=== PATIENT | male | born 1935 | race Caucasian/White ===

== ENCOUNTER 2018-07-09 04:11 | Inpatient (IN) | payer MEDICARE, OTHER ==
[~2018-07-09] VITALS: Ht 185.4 cm; Wt 102.3 kg
[~2018-07-09 04:11] MED LIST: ALBU90OI6 PO; ALLERTEC PO; ASPI81CH PO; ATOR10 PO; AZIT500 PO; CHOL10002 PO; DELTASONE20 MG PO; DOXE10 PO; ERGO400 PO; GABA100 PO; HYDCHL12.5 PO; IBUP800 PO; MECL25 PO; Omeprazole20 M1 PO; PRIM50 PO; PROC25S PR; PROP10 PO; Prilosec20 MG PO; SUCR1 PO; TIOT18 PO; TRAZ50 PO; VITAMIN B-12 PO; VITAMIN E PO; Zanaflex4 MG PO; [UNRECOGNIZED DRUG - REMARK]
[2018-07-09 04:59] LABS: BASOPHILS ABSOLUTE AUTO 0.05 K/mm3 (0.00-0.23); BASOPHILS PERCENT AUTO 1 % (0-2); EOSINOPHILS ABSOLUTE AUTO 0.31 K/mm3 (0.00-0.68); EOSINOPHILS PERCENT AUTO 5 % (0-6); Hematocrit 35.5 % (37.0-53.0); Hemoglobin 12.8 g/dL (13.5-17.5); IMMATURE GRAN ABSOLUTE AUTO 0.02 K/mm3 (0.00-0.10); IMMATURE GRAN PERCENT AUTO 0 % (0-1); LYMPHOCYTES ABSOLUTE AUTO 1.02 K/mm3 (0.84-5.20); LYMPHOCYTES PERCENT AUTO 17 % (21-46); MONOCYTES ABSOLUTE AUTO 0.37 K/mm3 (0.16-1.47); MONOCYTES PERCENT AUTO 6 % (4-13); Mean Corpuscular HGB 34.5 pg (26.0-34.0); Mean Corpuscular HGB Conc 36.1 g/dL (31.5-36.5); Mean Corpuscular Volume 96 fL (80-100); Mean Platelet Volume 9.6 fL (9.1-12.4); NEUTROPHILS ABSOLUTE AUTO 4.09 K/mm3 (1.96-9.15); NEUTROPHILS PERCENT AUTO 70 % (41-73); Platelet Count 197 K/mm3 (150-400); RDW Coefficient Variation 13.2 % (11.7-14.2); RDW Standard Deviation 46.5 fL (35.1-46.3); Red Blood Cell Count 3.71 M/mm3 (4.30-5.90); White Blood Cell Count 5.86 K/mm3 (4.00-11.30)
[2018-07-09 05:21] LABS: Alanine Aminotransfer (ALT/SGP 59 U/L (12-78); Albumin, Blood 3.7 g/dL (3.4-5.0); Albumin/Globulin Ratio 1.3 (0.8-1.8); Alk Phos 64 U/L (50-136); Anion Gap 6 mmol/L (6-16); Aspartate Aminotrans (AST/SGOT 67 U/L (12-37); Bilirubin, Total 0.6 mg/dL (0.1-1.0); Blood Urea Nitrogen 16 mg/dL (8-24); Bun/Creatinine Ratio 17.6 (12.0-20.0); CO2, Blood 28 mmol/L (21-32); Calcium, Blood 8.5 mg/dL (8.5-10.1); Chloride, Blood 108 mmol/L (98-108); Creatinine, Blood 0.91 mg/dL (0.60-1.20); Globulin, Blood 2.9 g/dL (2.2-4.0); Glomerular Filtration Rate >60 (60-); Glucose, Blood 82 mg/dL (70-99); Potassium, Blood 3.5 mmol/L (3.5-5.5); Sodium, Blood 142 mmol/L (136-145); Total Protein, Blood 6.6 g/dL (6.4-8.2); Troponin I 0.068 ng/mL (0.000-0.040)
[2018-07-09] MEDS ORDERED: IBUP800 PO (07:21)
[2018-07-09] MEDS ORDERED: PRIM50 PO (07:23)
[2018-07-09] MEDS ORDERED: CYAN500 PO (07:24)
[2018-07-09] MEDS ORDERED: CETI5 PO (07:25)
[2018-07-09] MEDS ORDERED: Prilosec Otc20 MG PO (07:26)
[2018-07-09] MEDS ORDERED: [UNRECOGNIZED DRUG - OTHER] (07:30)
[2018-07-09] MEDS ORDERED: BICALUTAMIDE50 MG PO (18:09)
[2018-07-09] MEDS ORDERED: OXYC1TAB11 PO (18:27)
[2018-07-09] MEDS ORDERED: HYDR1TAB94 PO (18:28)
[2018-07-10 04:43] LABS: Hematocrit 35.3 % (37.0-53.0); Hemoglobin 12.3 g/dL (13.5-17.5); Mean Corpuscular HGB 33.6 pg (26.0-34.0); Mean Corpuscular HGB Conc 34.8 g/dL (31.5-36.5); Mean Corpuscular Volume 96 fL (80-100); Mean Platelet Volume 10.5 fL (9.1-12.4); Platelet Count 206 K/mm3 (150-400); RDW Coefficient Variation 13.4 % (11.7-14.2); RDW Standard Deviation 47.7 fL (35.1-46.3); Red Blood Cell Count 3.66 M/mm3 (4.30-5.90); White Blood Cell Count 7.82 K/mm3 (4.00-11.30)
[2018-07-10 05:09] LABS: Alanine Aminotransfer (ALT/SGP 46 U/L (12-78); Albumin, Blood 3.3 g/dL (3.4-5.0); Albumin/Globulin Ratio 1.1 (0.8-1.8); Alk Phos 64 U/L (50-136); Anion Gap 8 mmol/L (6-16); Aspartate Aminotrans (AST/SGOT 43 U/L (12-37); Bilirubin, Total 0.5 mg/dL (0.1-1.0); Blood Urea Nitrogen 11 mg/dL (8-24); Bun/Creatinine Ratio 12.3 (12.0-20.0); CO2, Blood 28 mmol/L (21-32); Chloride, Blood 106 mmol/L (98-108); Globulin, Blood 3.1 g/dL (2.2-4.0); Glomerular Filtration Rate >60 (60-); Glucose, Blood 137 mg/dL (70-99); Potassium, Blood 3.8 mmol/L (3.5-5.5); Sodium, Blood 142 mmol/L (136-145); Total Protein, Blood 6.4 g/dL (6.4-8.2)
[2018-07-11 05:19] LABS: Hematocrit 35.8 % (37.0-53.0); Hemoglobin 12.4 g/dL (13.5-17.5); Mean Corpuscular HGB 33.3 pg (26.0-34.0); Mean Corpuscular HGB Conc 34.6 g/dL (31.5-36.5); Mean Corpuscular Volume 96 fL (80-100); Mean Platelet Volume 10.4 fL (9.1-12.4); Platelet Count 199 K/mm3 (150-400); RDW Coefficient Variation 13.5 % (11.7-14.2); RDW Standard Deviation 48.2 fL (35.1-46.3); Red Blood Cell Count 3.72 M/mm3 (4.30-5.90)
[2018-07-11 05:51] LABS: Anion Gap 6 mmol/L (6-16); Blood Urea Nitrogen 14 mg/dL (8-24); Bun/Creatinine Ratio 17.5 (12.0-20.0); CO2, Blood 27 mmol/L (21-32); Calcium, Blood 8.2 mg/dL (8.5-10.1); Chloride, Blood 106 mmol/L (98-108); Glomerular Filtration Rate >60 (60-); Glucose, Blood 122 mg/dL (70-99); Potassium, Blood 4.1 mmol/L (3.5-5.5); Sodium, Blood 139 mmol/L (136-145)
[2018-07-11] MEDS ORDERED: BENZ100A PO (08:57)
[2018-07-11] MEDS ORDERED: ALBU90OI6 INH (08:58)
[2018-07-11] MEDS ORDERED: LEVO750 PO (08:58)
[2018-07-11] MEDS ORDERED: DULERA 100 MCG/13 GM INH (08:59)
[2018-07-11] MEDS ORDERED: PRED10 PO (09:00)
== END 2018-07-11 12:00 | disposition home or self-care (01) | DRG 191 ==
LOC: ER 04:11 → PCU 04:12 → ER 06:49 → PCU 06:56 → MEDS 07-10 16:53 → ENPENDDIS 07-11 08:43 → MEDS 07-11 08:43
PROVIDERS: Emergency Medicine; Internal Medicine
DX: J44.0 Chronic obstructive pulmonary disease with (acute) lower respiratory infection (principal); I24.8 Other forms of acute ischemic heart disease; J44.1 Chronic obstructive pulmonary disease with (acute) exacerbation; J20.9 Acute bronchitis, unspecified; I25.10 Atherosclerotic heart disease of native coronary artery without angina pectoris; Z77.090 Contact with and (suspected) exposure to asbestos; I10 Essential (primary) hypertension; I25.2 Old myocardial infarction; Z85.46 Personal history of malignant neoplasm of prostate; Z92.3 Personal history of irradiation; Z79.82 Long term (current) use of aspirin; Z79.899 Other long term (current) drug therapy; Z87.891 Personal history of nicotine dependence
CPT/HCPCS: 36415; 71046; 80048; 80053; 83880; 84484; 85025; 85027; 87070; 87205; 93005; 93010; 93971; 94640; 94760; 96361; 96365; 96366; 96372; 96375; 96376; 97162; 97165; 97530; 99285-25; G0378; G8978; G8979; G8980; G8987; G8988; G8989; J1650; J1956; J2930; J7030

== ENCOUNTER 2020-12-11 11:57 | Emergency (ER) | payer MEDICARE, OTHER ==
[~2020-12-11] VITALS: Ht 185.4 cm; Wt 103.9 kg
[~2020-12-11 11:57] MED LIST changes: +ALBU90OI6 INH; +BENZ100A PO; +BICALUTAMIDE50 MG PO; +CETI5 PO; +CYAN500 PO; +DULERA 100 MCG/13 GM INH; +HYDR1TAB94 PO; +LEVO750 PO; +OXYC1TAB11 PO; +PRED10 PO; +Prilosec Otc20 MG PO; +[UNRECOGNIZED DRUG - OTHER]
[2020-12-11] MEDS ORDERED: ACETAMINOPHEN500 MG PO (16:43)
== END 2020-12-11 17:05 | disposition home or self-care (01) ==
LOC: ER 11:57
DX: S80.02XA Contusion of left knee, initial encounter (principal); I10 Essential (primary) hypertension; M79.605 Pain in left leg; Z79.82 Long term (current) use of aspirin; Z79.52 Long term (current) use of systemic steroids; Z79.899 Other long term (current) drug therapy; Z87.891 Personal history of nicotine dependence; W01.10XA Fall on same level from slipping, tripping and stumbling with subsequent striking against unspecified object, initial encounter
CPT/HCPCS: 93971; 99283-25

== ENCOUNTER 2022-04-04 17:20 | Emergency (ER) | payer OTHER ==
[~2022-04-04] VITALS: Ht 185.4 cm; Wt 99.3 kg
[~2022-04-04 17:20] MED LIST changes: +ACETAMINOPHEN500 MG PO
[2022-04-04] MEDS ORDERED: ACETAMINOPHEN500 MG PO (22:33)
== END 2022-04-04 22:50 | disposition home or self-care (01) ==
LOC: ER 17:20
DX: S09.90XA Unspecified injury of head, initial encounter (principal); W01.198A Fall on same level from slipping, tripping and stumbling with subsequent striking against other object, initial encounter; M54.2 Cervicalgia; I10 Essential (primary) hypertension; Z87.891 Personal history of nicotine dependence; Z79.899 Other long term (current) drug therapy
CPT/HCPCS: 70450; 72125

== ENCOUNTER 2023-08-17 09:50 | Observation (INO) | payer OTHER ==
[~2023-08-17] VITALS: Ht 185.4 cm; Wt 94.6 kg
[~2023-08-17 09:50] MED LIST changes: +Primidone50 MG PO
[2023-08-17 10:17] LABS: BASOPHILS ABSOLUTE AUTO 0.03 K/mm3 (0.00-0.23); BASOPHILS PERCENT AUTO 1 % (0-2); EOSINOPHILS ABSOLUTE AUTO 0.22 K/mm3 (0.00-0.68); EOSINOPHILS PERCENT AUTO 4 % (0-6); Hematocrit 37.8 % (37.0-53.0); Hemoglobin 13.3 g/dL (13.5-17.5); IMMATURE GRAN ABSOLUTE AUTO 0.02 K/mm3 (0.00-0.10); IMMATURE GRAN PERCENT AUTO 0 % (0-1); LYMPHOCYTES ABSOLUTE AUTO 0.82 K/mm3 (0.84-5.20); LYMPHOCYTES PERCENT AUTO 15 % (21-46); MONOCYTES ABSOLUTE AUTO 0.39 K/mm3 (0.16-1.47); MONOCYTES PERCENT AUTO 7 % (4-13); Mean Corpuscular HGB 35.1 pg (26.0-34.0); Mean Corpuscular HGB Conc 35.2 g/dL (31.5-36.5); Mean Corpuscular Volume 100 fL (80-100); Mean Platelet Volume 10.3 fL (9.1-12.4); NEUTROPHILS ABSOLUTE AUTO 3.92 K/mm3 (1.96-9.15); NEUTROPHILS PERCENT AUTO 73 % (41-73); Platelet Count 160 K/mm3 (150-400); RDW Coefficient Variation 13.4 % (11.7-14.2); Red Blood Cell Count 3.79 M/mm3 (4.30-5.90)
[2023-08-17 10:42] LABS: Albumin, Blood 3.5 g/dL (3.4-5.0); Albumin/Globulin Ratio 1.2 (0.8-1.8); Bilirubin, Total 0.6 mg/dL (0.1-1.0); Bun/Creatinine Ratio 21.7 (12.0-20.0); Calcium, Blood 8.9 mg/dL (8.5-10.1); Creatinine, Blood 0.78 mg/dL (0.60-1.20); Potassium, Blood 4.2 mmol/L (3.5-5.5); Total Protein, Blood 6.5 g/dL (6.4-8.2)
[2023-08-17 13:04] LABS: Anti-Xa UFH, PHA Monitoring <0.10 IU/mL; International Normalized Ratio 1.02; Prothrombin Time Results 10.7 Sec (9.7-11.5)
[2023-08-17 14:41] VITALS: BP 145/91
[2023-08-17] MEDS ORDERED: XTANDI40 MG PO (14:59)
--- NOTE | 2023-08-17 17:39 | NUR ---
PCU ADMIT / END OF SHIFT PT BROUGHT TO PCU-03 BY WHEELCHAIR FROM ER @ APPROX 1440. PT A&O X4, ABLE TO STAND & AMBULATE FROM WC TO BED INDEPENDENTLY. PT [place], BILAT HEARING AIDS IN PLACE. PT VSS. SPO2 > 92% ON RA. MONITOR SHOWING SB-SR W/ 1ST DEGREE, HR 40s-60s. HEPARIN BOLUS & GTT INITIATED PER EMAR UPON PT ARRIVAL FROM ER. PT DENYING CP/PRESSURE OR ANY OTHER PAIN/DISCOMFORT. RESTING PORTION OF STRESS TEST COMPLETE TODAY. PT NPO AFTER MIDNIGHT FOR 2ND PORTION STRESS TEST TOMORROW AM.
[2023-08-17 20:19] VITALS: BP 158/94
--- NOTE | 2023-08-17 22:15 | NUR ---
UPDATE PHARMACY CALLED WITH ORDERS TO HOLD HEPARIN DRIP FOR 1 HOUR. HEPARIN ON STAND BY AT THIS TIME AND WILL RESTART IN 1 HOUR AT NEW RATE.
[2023-08-17 23:19] VITALS: BP 121/58
[2023-08-18 03:36] VITALS: BP 113/55
--- NOTE | 2023-08-18 04:43 | NUR ---
SHIFT SUMMARY PT REMAINS ALERT AND ORIENTED. BP STABLE. HR REMAINS SR 1ST DEGREE IN THE 60'S. O2 SATS REMAIN ABOVE 90% ON RA. PT DENIES ANY CP/PRESSURE. PT ABLE TO AMBULATE TO BATHROOM NEEDED WITH SBA. PT ABLE TO REPOSITION HIMSELF INDEPENDENTLY IN THE BED. HEP GTT INFUSING PER [place]. WILL CONTINUE TO MONITOR AND REPORT TO ONCOMING RN
[2023-08-18 07:56] VITALS: BP 142/67
[2023-08-18 12:40] VITALS: BP 108/56
[2023-08-18 16:09] VITALS: BP 135/79
--- NOTE | 2023-08-18 18:56 | NUR ---
END OF SHIFT / DISCHARGE PT A&O X4. VSS. SPO2 > 92% ON RA. MONITOR SHOWING SB-SR, HR 50s-60s. PT DENYING CP/DISCOMFORT. 2ND PORTION STRESS TEST COMPLETE THIS SHIFT. MD NELSON W/ ORDER FOR PT DISCHARGE IF STRESS TEST NORMAL. STRESS TEST RESULTS BACK THIS EVENING. MD NELSON STATES PT OKAY FOR DISCHARGE HOME.
[2023-08-18] MEDS ORDERED: AMLO5 PO (19:18)
[2023-08-18 19:55] VITALS: BP 122/82
--- NOTE | 2023-08-18 19:58 | NUR ---
ASSUMPTION OF CARE THIS RN ASSUMED CARE OF PT AT 1900. REPORT FROM TESSIE MADRID. PT UP IN ROOM, GATHERING BELONGINGS FOR DISCHARGE. PT PLEASANT UPON INTERACTION. VSS. PT DENIES ANY CONCERNS OR NEEDS AT THIS TIME. DENIES ANY CP OR PRESSURE, DENIES SOB. DAUGHTER TO PICK PT UP. DISCHARGE PAPERWORK COMPLETED WITH PT. ALL PT BELONGINGS SENT HOME WITH PT. PT LEFT VIA WHEELCHAIR BY LINE LOCATOR AT 2002
== END 2023-08-18 20:15 | disposition home or self-care (01) ==
LOC: ER 09:50 → PCU 12:02
PROVIDERS: Physician Assistant; Student in an Organized Health Care Education/Training Program; ADMIT Internal Medicine
DX: R07.89 Other chest pain (principal); I25.2 Old myocardial infarction; I25.10 Atherosclerotic heart disease of native coronary artery without angina pectoris; I10 Essential (primary) hypertension; J44.9 Chronic obstructive pulmonary disease, unspecified; Z87.891 Personal history of nicotine dependence; Z85.46 Personal history of malignant neoplasm of prostate
CPT/HCPCS: 36415; 71046; 78452; 80053; 83880; 84484; 85025; 85520; 85610; 85730; 93005; 93010; 93017; 93306; 94760; 96365; 96366; 99285-25; A9270; A9500; G0378; J0706; J1644; J2785

== ENCOUNTER 2023-11-28 18:03 | Observation (INO) | payer OTHER ==
[~2023-11-28] VITALS: Ht 185.4 cm; Wt 93.9 kg
[~2023-11-28 18:03] MED LIST changes: +AMLO5 PO; +XTANDI40 MG PO
[2023-11-28] MEDS ORDERED: TAMS.4ER PO (19:35)
[2023-11-28] MEDS ORDERED: LOPE2C (19:35)
[2023-11-28] MEDS ORDERED: ALEVAZOL56.7 G1 TOP (19:36)
[2023-11-28] MEDS ORDERED: CLOT10 MT (19:36)
[2023-11-28] MEDS ORDERED: FURO20 PO (19:36)
[2023-11-28] MEDS ORDERED: Norco 5-325 Ta1 EACH PO (19:37)
[2023-11-28] MEDS ORDERED: POTA10T PO (19:37)
[2023-11-28 20:02] LABS: BASOPHILS ABSOLUTE AUTO 0.03 K/mm3 (0.00-0.23); BASOPHILS PERCENT AUTO 0 % (0-2); EOSINOPHILS ABSOLUTE AUTO 0.25 K/mm3 (0.00-0.68); EOSINOPHILS PERCENT AUTO 3 % (0-6); Hematocrit 38.3 % (37.0-53.0); Hemoglobin 13.2 g/dL (13.5-17.5); IMMATURE GRAN ABSOLUTE AUTO 0.03 K/mm3 (0.00-0.10); IMMATURE GRAN PERCENT AUTO 0 % (0-1); LYMPHOCYTES ABSOLUTE AUTO 1.52 K/mm3 (0.84-5.20); LYMPHOCYTES PERCENT AUTO 20 % (21-46); MONOCYTES ABSOLUTE AUTO 0.47 K/mm3 (0.16-1.47); MONOCYTES PERCENT AUTO 6 % (4-13); Mean Corpuscular HGB 34.3 pg (26.0-34.0); Mean Corpuscular HGB Conc 34.5 g/dL (31.5-36.5); Mean Corpuscular Volume 100 fL (80-100); Mean Platelet Volume 10.1 fL (9.1-12.4); NEUTROPHILS ABSOLUTE AUTO 5.33 K/mm3 (1.96-9.15); NEUTROPHILS PERCENT AUTO 70 % (41-73); Platelet Count 216 K/mm3 (150-400); RDW Coefficient Variation 13.6 % (11.7-14.2); RDW Standard Deviation 49.4 fL (35.1-46.3); Red Blood Cell Count 3.85 M/mm3 (4.30-5.90); White Blood Cell Count 7.63 K/mm3 (4.00-11.30)
[2023-11-28 21:02] LABS: Albumin, Blood 3.6 g/dL (3.4-5.0); Albumin/Globulin Ratio 1.2 (0.8-1.8); Bilirubin, Total 0.5 mg/dL (0.1-1.0); Bun/Creatinine Ratio 23.4 (12.0-20.0); Calcium, Blood 9.4 mg/dL (8.5-10.1); Creatinine, Blood 0.85 mg/dL (0.60-1.20); Globulin, Blood 3.1 g/dL (2.2-4.0); Potassium, Blood 4.7 mmol/L (3.5-5.5); Total Protein, Blood 6.7 g/dL (6.4-8.2)
[2023-11-28] MEDS ORDERED: DiphenhydrAMINE HCl 50 MG/ML 1ML Vial IV ONE (21:40)
[2023-11-28] MEDS ORDERED: Hydrocortisone Sod Succinate 100 MG Vial IV ONE (21:40)
[2023-11-28] MEDS ORDERED: Ondansetron HCl 2 MG / ML 2ML Vial IV PRN (22:35)
[2023-11-28] MEDS ORDERED: Acetaminophen 325 MG TABLET PO PRN (22:35)
[2023-11-28] MEDS ORDERED: FLU VACC QS2023-24(6MOS UP)/PF 60 MCG/0.5 ML SYRINGE IM ONE (22:35)
[2023-11-28] MEDS ORDERED: HYDROcodone 5-APAP 325 TAB PO PRN (22:45)
[2023-11-28] MEDS ORDERED: AmLODIPine Besylate 5 MG Tab PO SCH (23:00)
[2023-11-28] MEDS ORDERED: Tamsulosin HCl 0.4 MG Cap PO SCH (23:50)
[2023-11-29] MEDS ORDERED: Albuterol HFA200 ACT/6.7 GM INH INH PRN (03:50)
[2023-11-29 05:05] LABS: BASOPHILS ABSOLUTE AUTO 0.01 K/mm3 (0.00-0.23); BASOPHILS PERCENT AUTO 0 % (0-2); EOSINOPHILS ABSOLUTE AUTO 0.03 K/mm3 (0.00-0.68); EOSINOPHILS PERCENT AUTO 1 % (0-6); Hematocrit 33.6 % (37.0-53.0); Hemoglobin 11.7 g/dL (13.5-17.5); IMMATURE GRAN ABSOLUTE AUTO 0.01 K/mm3 (0.00-0.10); IMMATURE GRAN PERCENT AUTO 0 % (0-1); LYMPHOCYTES ABSOLUTE AUTO 0.44 K/mm3 (0.84-5.20); LYMPHOCYTES PERCENT AUTO 9 % (21-46); MONOCYTES ABSOLUTE AUTO 0.23 K/mm3 (0.16-1.47); MONOCYTES PERCENT AUTO 5 % (4-13); Mean Corpuscular HGB 34.4 pg (26.0-34.0); Mean Corpuscular HGB Conc 34.8 g/dL (31.5-36.5); Mean Corpuscular Volume 99 fL (80-100); Mean Platelet Volume 10.3 fL (9.1-12.4); NEUTROPHILS ABSOLUTE AUTO 3.94 K/mm3 (1.96-9.15); NEUTROPHILS PERCENT AUTO 85 % (41-73); Platelet Count 184 K/mm3 (150-400); RDW Coefficient Variation 13.5 % (11.7-14.2); RDW Standard Deviation 48.9 fL (35.1-46.3); White Blood Cell Count 4.66 K/mm3 (4.00-11.30)
[2023-11-29 06:14] LABS: Alanine Aminotransfer (ALT/SGP 15 U/L (12-78); Albumin, Blood 2.9 g/dL (3.4-5.0); Alk Phos 65 U/L (50-136); Anion Gap 5 mmol/L (6-16); Aspartate Aminotrans (AST/SGOT 28 U/L (12-37); Bilirubin, Total 0.5 mg/dL (0.1-1.0); Blood Urea Nitrogen 21 mg/dL (8-24); Bun/Creatinine Ratio 26.6 (12.0-20.0); CO2, Blood 26 mmol/L (21-32); Calcium, Blood 8.7 mg/dL (8.5-10.1); Chloride, Blood 109 mmol/L (98-108); Cholesterol 141 mg/dL (50-200); Creatinine, Blood 0.79 mg/dL (0.60-1.20); Globulin, Blood 2.9 g/dL (2.2-4.0); Glomerular Filtration Rate 87 (60-); Glucose, Blood 122 mg/dL (70-99); Magnesium, Blood 2.2 mg/dL (1.6-2.4); Potassium, Blood 4.6 mmol/L (3.5-5.5); Sodium, Blood 140 mmol/L (136-145); Thyroid Stimulating Hormone 0.402 uIU/mL (0.360-4.800); Total Protein, Blood 5.8 g/dL (6.4-8.2); Triglycerides 37 mg/dL (30-160)
[2023-11-29 08:43] VITALS: BP 155/76
[2023-11-29] MEDS ORDERED: Docusate Sodium 100 MG Cap PO SCH (09:00)
[2023-11-29] MEDS ORDERED: Aspirin 81 MG Chew PO SCH (09:00)
[2023-11-29] MEDS ORDERED: ENZALUTAMIDE 80 MG PO SCH (09:00)
[2023-11-29] MEDS ORDERED: Primidone 50 MG Tab PO SCH (09:00)
[2023-11-29] MEDS ORDERED: Furosemide 20 MG Tab PO SCH (09:00)
[2023-11-29] MEDS ORDERED: Potassium Chloride 10 Meq Tablet SA PO SCH (09:00)
[2023-11-29] MEDS ORDERED: Metoprolol Succinate 25 MG TABCR PO SCH (09:00)
[2023-11-29] MEDS ORDERED: Enoxaparin 40 MG/0.4 ML SYR SC SCH (09:00)
--- NOTE | 2023-11-29 10:26 | NUR ---
PT ARRIVED TO UNIT FROM ER AT APPROX 0830 PT TRANSFERS SELF WELL FROM [facility] [place] TO BED. IND IN ROOM. DENIES CP, REPORTS NO PAIN SINCE YESTERDAY. DENIES ANY SOB. NO NUMBNESS OR TINGLING. HE REPORTS HOPING TO DISCHARGE TONIGHT SO HE CAN MAKE BINGO TOMORROW. TOLERATING WATER WELL. DENIES FURTHER NEEDS AT THIS TIME.
[2023-11-29 14:35] VITALS: BP 138/72
[2023-11-29] MEDS ORDERED: METO25ER PO (15:21)
--- NOTE | 2023-11-29 16:37 | NUR ---
discharge since arrival to unit pt has been ambulating well in room. sats remain 94% or higher on room air with exertion. remained sinus on tele. no chest pain or shortness of breath during the shift. tolerating diet well and voiding. taken out via wheelchair. no further needs at this time. all instructions gone over with patient.
[2023-11-29] MEDS ORDERED: Doxepin HCL 10 MG CAP PO SCH (21:00)
[2023-11-29] MEDS ORDERED: Cholecalciferol 400 unit Tab PO SCH (21:00)
== END 2023-11-29 16:28 | disposition home or self-care (01) ==
LOC: ER 18:03 → ERHOLD 18:04 → SURS 18:04
PROVIDERS: Student in an Organized Health Care Education/Training Program; ADMIT Student in an Organized Health Care Education/Training Program
DX: I25.118 Atherosclerotic heart disease of native coronary artery with other forms of angina pectoris (principal); J44.9 Chronic obstructive pulmonary disease, unspecified; I10 Essential (primary) hypertension; I25.2 Old myocardial infarction; R79.89 Other specified abnormal findings of blood chemistry; Z85.46 Personal history of malignant neoplasm of prostate; Z87.891 Personal history of nicotine dependence
CPT/HCPCS: 71045; 71260; 80053; 82465; 82947; 83735; 84443; 84478; 84484; 85025; 93005; 93010; 93308; 93321; 96372; 96374; 96375; 99285-25; A9270; G0378; J1200; J1650; J1720; Q9967